=== PATIENT | female | born 2005 | race Two or more races ===

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

== ENCOUNTER 2025-05-22 13:51 | Emergency (ER) | payer MEDICAID, OTHER ==
[~2025-05-22] VITALS: Ht 162.6 cm; Wt 82.0 kg
--- NOTE | 2025-05-22 14:08 | ED.PDOC ---
Altered Mental Status HPI Comments A 19 year-old female, with a PMHX of Guillain-Butler and Seizures, presents to the ED via EMS with a chief complaint of seizure with associated headache minutes ago. Per EMS, patient was found seizing in bed by parents. Per EMS, patient was given 4mg Zofran IV en route. Patient reports being off seizure medications for X1 month with last reported seizure X1 year ago. Patient has no further complaints at this time and otherwise denies further associated symptoms of palpitations, chest pain, dizziness, blurred vision, N/V/D, or fever. 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 Hx Family History Family History: Reviewed,noncontributory to illness Social History Smoker: Non-Smoker Alcohol: Denies ETOH Use Drugs: Denies Drug Use Lives In: Home Constitutional: denies: chills, diaphoresis, fatigue, fever, malaise, sweats, weakness, others EENTM: denies: blurred vision, double vision, ear bleeding, ear discharge, ear drainage, ear pain, ear ringing, eye pain, eye redness, hearing loss, mouth pain, mouth swelling, nasal discharge, nose bleeding, nose congestion, nose pain, photophobia, tearing, throat pain, throat swelling, voice changes, others Respiratory: denies: cough, hemoptysis, orthopnea, SOB at rest, shortness of breath, SOB with excertion, stridor, wheezing, others Cardiovascular: denies: chest pain, dizzy spells, diaphoresis, Dyspnea on exertion, edema, irregular heart beat, left arm pain, lightheadedness, palpitations, PND, syncope, others Gastrointestinal: denies: abdomen distended, abdominal pain, blood streaked bowels, constipated, diarrhea, dysphagia, difficulty swallowing, hematemesis, melena, nausea, poor appetite, poor fluid intake, rectal bleeding, rectal pain, vomiting, others Genitourinary: denies: abnormal vagina bleeding, burning, dyspareunia, dysuria, flank pain, frequency, hematuria, incontinence, pain, , vagina discharge, urgency, others Neurological: reports: headache, seizure; denies: dizziness, fainting, left sided numbness, left sided weakness, numbness, paresthesia, pre-existing d eficit, right sided numbness, right sided weakness, speech problems, tingling, tremors, weakness, others Musculoskeletal: denies: back pain, gout, joint pain, joint swelling, muscle pain, muscle stiffness, neck pain, others Integumetry: denies: bruises, change in color, change in hair/nails, dryness, laceration, lesions, lumps, rash, wounds, others Allergic/Immunocompromised: denies: Difficulty Healing, Frequent Infections, Hives, Itching, others Hematologic/Lymphatic: denies: anemia, blood clots, easy bleeding, easy bruising, swollen glands, others Endocrine: denies: excessive hunger, excessive sweating, excessive thirst, excessive urination, flushing, intolerance to cold, intolerance to heat, unexplained weight gain, unexplained weight loss, others Psychiatric: denies: anxiety, bipolar disorder, depression, hopeless, panic disorder, schizophrenia, sleepless, suicidal, others All Other Systems: Reviewed and Negative Physical Exam General Appearance: Mild Distress HEENT: Normal ENT Inspection, Pharynx Normal, TMs Normal Neck: Full Range of Motion, Non-Tender, Normal, Normal Inspection Respiratory: Chest Non-Tender, Lungs Clear, No Accessory Muscle Use, No Respiratory Distress, Normal Breath Sounds Cardiovascular: No Edema, No JVD, No Murmur, No Gallop, Normal Peripheral Pulses, Regular Rate/Rhythm Breast Exam: Deferred Gastrointestinal: No Organomegaly, Non Tender, No Pulsatile Mass, Normal Bowel Sounds, Soft Genitalia: Deferred Pelvic: Deferred Rectal: Deferred Extremities: No calf tenderness, Normal capillary refill, Normal inspection, Normal range of motion, Non-tender, No pedal edema Musculoskeletal : Apperance: Normal Neurologic: Alert, cattle dehorner II-XII nml as Tested, No Motor Deficits, Normal Affect, Normal Mood, No Sensory Deficits Cerebellar Function: Normal Reflexes: Normal Skin: Dry, Normal Color, Warm Lymphatic: No Adenopathy Was a procedure done? Was a procedure done?: No Differential Diagnosis (ALOC) Differential Diagnosis: Dehydration, Seizure, Closed Head Injury, ETOH Intoxication X-Ray, Labs, Meds, VS Vital Signs Date Time Temp Pulse Resp B/P (MAP) Pulse Ox O2 Delivery O2 Flow Rate FiO2 05/22/25 15:58 102 20 131/48 (75) 98 05/22/25 14:22 119 17 97 Room Air* 0 21 05/22/25 14:12 98.1 119 17 153/81 (105) 97 98.1 05/22/25 14:06 98.5 142 14 141/81 99 98.5 Lab Test 05/22/25 14:13 Range/Units White Blood Count 10.3 4.4-10.8 10^3/uL Red Blood Count 5.27 H 4.0-5.20 10^6/uL Hemoglobin 13.0 12.2-16.2 g/dL Hematocrit 38.8 36.0-46.0 % Mean Corpuscular Volume 73.8 L 80.0-100.0 fL Mean Corpuscular Hemoglobin 24.7 L 28.0-32.0 pg Mean Corpuscular Hemoglobin Concent 33.5 32.0-36.0 g/dL Red Cell Distribution Width 17.5 H 11.8-14.3 % Platelet Count 381 140-450 10^3/uL Mean Platelet Volume 7.7 6.9-10.8 fL Neutrophils (%) (Auto) 66.3 37.0-80.0 % Lymphocytes (%) (Auto) 26.0 10.0-50.0 % Monocytes (%) (Auto) 7.3 0.0-12.0 % Eosinophils (%) (Auto) 0.3 0.0-7.0 % Basophils (%) (Auto) 0.1 0.0-2.0 % Neutrophils # (Auto) 6.8 1.6-8.6 10 ^3/uL Lymphocytes # (Auto) 2.7 0.4-5.4 10 ^3/uL Monocytes # (Auto) 0.8 0-1.3 10 ^3/uL Eosinophils # (Auto) 0 0-0.8 10 ^3/uL Basophils # (Auto) 0 0-0.2 10 ^3/uL Nucleated Red Blood Cells 0.1 % Sodium Level 140 136-145 mmol/L Potassium Level 4.0 3.5-5.1 mmol/L Chloride Level 106 98-107 mmol/L Carbon Dioxide Level 26 20-31 mmol/L Anion Gap 8 5-15 Blood Urea Nitrogen 8 L 9-23 mg/dL Creatinine 0.41 L 0.550-1.02 mg/dL Glomerular Filtration Rate Calc 144 >90 mL/min BUN/Creatinine Ratio 19.5 10.0-20.0 Serum Glucose 107 H 74-106 mg/dL Calcium Level 10.0 8.7-10.4 mg/dL Current Medications Medications (Trade) Dose Ordered Sig/Dane Route Start Time Stop Time Status Last Admin Levetiracetam 100 ml @ 400 mls/hr ONCE ONCE IV 05/22/25 14:15 05/22/25 14:29 DC 05/22/25 14:20 Acetaminophen/ Hydrocodone Bitart ([place] 10/325MG Tab) 1 tab ONCE ONCE PO 05/22/25 14:30 05/22/25 14:31 DC 05/22/25 14:43 CAT scan of the head is negative The patient was given Keppra 1 g IV piggyback The patient was also given [place] for her headache The patient's CBC and chemistry panel are within normal limits At this time, seizure precautions were placed on the patient The patient is now being discharged and will follow up with the primary care doctor The patient will return to the emergency department's condition worsens We did give the family instructions to contact the patient's neurologist for follow up The patient is discharged Images Reviewed?: Images reviewed and evaluated by me Time of 1ST Reevaluation: 14:46 Reevaluation 1ST: Unchanged Patient Education/Counseling: Diagnosis, Treatment, Prognosis, Need For Follow Up Family Education/Counseling: No Family Present SEPSIS Sepsis Screen Physician Orders Pulse Oximetry (05/22/25 14:03) Blood Pressure (05/22/25 14:03) Heplock Iv (05/22/25 14:03) Seizure Precautions (05/22/25 14:03) Formwork Carpenter (05/22/25 14:03) Head Without Contrast (05/22/25 14:03) Urinalysis (05/22/25 14:03) Vital Signs Date Time Temp Pulse Resp B/P (MAP) Pulse Ox O2 Delivery O2 Flow Rate FiO2 05/22/25 15:58 102 20 131/48 (75) 98 05/22/25 14:22 119 17 97 Room Air* 0 21 05/22/25 14:12 98.1 119 17 153/81 (105) 97 98.1 05/22/25 14:06 98.5 142 14 141/81 99 98.5 Laboratory Tests Test 05/22/25 14:13 White Blood Count 10.3 10^3/uL (4.4-10.8) Medications Medications Dose Ordered Sig/Dane Route Start Time Stop Time Status Last Admin Dose Admin Acetaminophen/ Hydrocodone Bitart 1 tab ONCE ONCE PO 05/22/25 14:30 05/22/25 14:31 DC 05/22/25 14:43 Levetiracetam 100 ml @ 400 mls/hr ONCE ONCE IV 05/22/25 14:15 05/22/25 14:29 DC 05/22/25 14:20 Departure 1 Departure Time of Disposition: 16:06 Impression: Primary Impression: Breakthrough seizure Disposition: 01 HOME / SELF CARE / HOMELESS Condition: Fair Discharged With: Self, Relative (Mother) Critical Care Note Critical Care Time?: No Stability Stability form required: No Heart Score Heart Score: Heart Score Response (Comments) Value History N/A 0 EKG N/A 0 Age N/A 0 Risk Factors N/A 0 Troponin N/A 0 Total 0 I personally scribed for SAMMY POLANCO MD ([email or web address]) on 05/22/25 at 14:08. Electronically submitted by Celestina Coleman ([employer]). I personally scribed for SAMMY POLANCO MD ([email or web address]) on 05/22/25 at 14:12. El ectronically submitted by Celestina Coleman ([employer]). I personally scribed for SAMMY POLANCO MD ([email or web address]) on 05/22/25 at 14:16. Electronically submitted by Celestina Coleman ([employer]). SAMMY POLANCO MD May 22, 2025 14:08
[2025-05-22 14:12] VITALS: TEMP 98.1
[2025-05-22] MEDS: levETIRAcetam 1000 mg/100ml 100 ML IV ONE (14:20)
[2025-05-22 14:22] VITALS: PULSE 119; RESP 17; O2SAT 97
[2025-05-22 14:32] LABS: Mean Corpuscular Hemoglobin 24.7 pg (28.0-32.0); Nucleated Red Blood Cells % 0.1 %
[2025-05-22 14:33] LABS: Hematocrit 38.8 % (36.0-46.0); Hemoglobin 13.0 g/dL (12.2-16.2); Mean Corpuscular Volume 73.8 fL (80.0-100.0)
[2025-05-22 14:40] LABS: Chloride 106 mmol/L (98-107); Potassium 4.0 mmol/L (3.5-5.1); Sodium 140 mmol/L (136-145)
[2025-05-22 14:41] LABS: Anion Gap 8 (5-15); Calcium 10.0 mg/dL (8.7-10.4); Carbon Dioxide 26 mmol/L (20-31)
[2025-05-22] MEDS: HYDROcodone-ACET 10/325MG TAB PO ONE (14:43)
--- NOTE | 2025-05-22 14:45 | DVH ---
EXAM: CT HEAD WITHOUT CONTRAST HISTORY: seizure COMPARISON: CT HEAD WITHOUT CONTRAST on DOS: 11/13/23 TECHNIQUE: Noncontrast axial CT images of the head were performed. Sagittal and coronal reformatted i mages were obtained. This CT exam was performed using 1 or more of the following dose reduction techn iques: Automated exposure control, adjustment of the mA and/or kv according to patient size, or the u se of iterative reconstruction techniques. Radiation Dose: CTDI volume is 55.21 mGy. Dose-length product is 1086.33 mGy*cm FINDINGS: No intracranial hemorrhage, mass, midline shift, hydrocephalus, or evidence of acute large vessel inf arct. The paranasal sinuses are clear. The bilateral mastoid air cells and middle ear spaces are ricky ar. No cranial fracture or scalp edema. IMPRESSION: No acute intracranial process.
[2025-05-22 14:46] LABS: BUN/Creatinine Ratio 19.5 (10.0-20.0); Blood Urea Nitrogen 8 mg/dL (9-23); Glucose 107 mg/dL (74-106)
[2025-05-22 15:58] VITALS: BP 131/48; PULSE 102; RESP 20; O2SAT 98
== END 2025-05-22 16:00 | disposition home or self-care (01) ==
LOC: EDBD 13:51 → ER 13:51
DX: G40.909 Epilepsy, unspecified, not intractable, without status epilepticus (principal); Z88.8 Allergy status to other drugs, medicaments and biological substances
CPT/HCPCS: 36415; 70450; 80048; 85025; 96374; 99285; J1953